=== PATIENT | male | born 1945 | race Caucasian/White ===

== ENCOUNTER 2016-10-28 12:16 | Observation (INO) | payer MEDICARE, OTHER ==
[~2016-10-28] VITALS: Ht 172.7 cm; Wt 82.7 kg
[2016-10-28] MEDS ORDERED: ONDANSETRON 4 MG INJ IV STA (12:22)
[2016-10-28] MEDS ORDERED: SOD CHLORIDE 0.9% 1,000 ML IV STA (12:22)
[2016-10-28 12:36] LABS: ADD SCAN DIFF NO
[2016-10-28 12:39] LABS: BASOPHILS % 0.1 % (0.0-2.0); EOSINOPHILS # 0.1 10^3/ul (0.0-0.5); EOSINOPHILS % 1.6 % (0.0-7.0); HEMOGLOBIN 13.7 g/dl (14.0-18.0); LYMPHOCYTES # 3.8 10^3/ul (0.8-2.9); LYMPHOCYTES % 45.2 % (15.0-51.0); MEAN CORPUSCULAR HEMOGLOBIN 28.6 pg (29.0-33.0); MEAN CORPUSCULAR HGB CONC 35.1 g/dl (32.0-37.0); MEAN CORPUSCULAR VOLUME 81.4 fl (82.0-101.0); MEAN PLATELET VOLUME 10.6 fl (7.4-10.4); MONOCYTE # 0.6 10^3/ul (0.3-0.9); MONOCYTES % 7.5 % (0.0-11.0); NEUTROPHIL # 3.8 10^3/ul (1.6-7.5); NEUTROPHILS % 45.1 % (39.0-77.0); PLATELET COUNT 216 10^3/UL (140-415); RED BLOOD COUNT 4.79 10^6/ul (4.70-6.10); RED CELL DISTRIBUTION WIDTH 12.6 % (11.5-14.5); WHITE BLOOD COUNT 8.3 10^3/ul (4.8-10.8)
[2016-10-28 12:41] VITALS: TEMP 97.8
[2016-10-28 12:50] LABS: INR 0.97; PROTIME 12.9 Sec (12.2-14.2)
[2016-10-28 12:52] LABS: ALANINE AMINOTRANSFERASE 35 IU/L (13-69); ALBUMIN/GLOBULIN RATIO 1.42; ALKALINE PHOSPHATASE 54 IU/L (42-121); AMYLASE 57 U/L (11-123); ANION GAP 13 (8-16); ASPARTATE AMINO TRANSFERASE 20 IU/L (15-46); BILIRUBIN,INDIRECT 0.3 mg/dl (0-1.1); BILIRUBIN,TOTAL 0.3 mg/dl (0.2-1.3); BLOOD UREA NITROGEN 10 mg/dl (7-20); CALCIUM 9.1 mg/dl (8.4-10.2); CARBON DIOXIDE 24 mmol/L (21-31); CHLORIDE 100 mmol/L (97-110); CREATINE KINASE 50 IU/L (23-200); CREATININE 0.78 mg/dl (0.61-1.24); GLUCOSE 155 mg/dl (70-220); POTASSIUM 3.6 mmol/L (3.5-5.1); SODIUM 133 mmol/L (135-144); TOTAL PROTEIN 6.8 g/dl (6.1-8.1)
[2016-10-28 12:57] LABS: PARTIAL THROMBOPLASTIN TIME 25.9 Sec (25.0-35.0)
--- NOTE | 2016-10-28 12:59 | RADRPT ---
PROCEDURE: XR Chest. CLINICAL INDICATION: Shortness of breath. Altered mental status. TECHNIQUE: Single frontal view. COMPARISON: None. FINDINGS: The lungs are clear. The heart size is normal. There is no pleural effusion. There is no pneumothorax. IMPRESSION: 1. Normal chest radiograph. RPTAT: QQ .Manuelito Allred MD, MD Date Time Electronically viewed and signed by .Manuelito Allred MD, MD on 10/28/2016 12:59 .R/
--- NOTE | 2016-10-28 13:02 | RADRPT ---
PROCEDURE: CT brain without contrast CLINICAL INDICATION: Altered mental status TECHNIQUE: CT of the brain without contrast performed on a multidetector CT scanner, with multiplan ar reformats. One or more of the following dose reduction techniques were used: Automated exposure control, adjustment in mA and / or kV according to patient size, use of iterative reconstructive shila hnique. CTDIvol = 43 mGy; DLP = 720 mGy-cm. COMPARISON: None available FINDINGS: No acute intracranial hemorrhage is identified. No extra-axial fluid collection is seen. There is no mass effect. No midline shift is identified. Ventricles and sulci are mildly enlarged compatible with volume loss. There are minimal areas of hypodensity seen in the periventricular - deep white matter which are non specific but suggestive of chronic small vessel ischemic changes. Wylie-white differentiation is pre served. Atherosclerotic calcifications of the proximal intracranial arteries are noted. Osseous structures are unremarkable. Mastoid air cells and imaged paranasal sinuses grossly clear. IMPRESSION: 1. No evidence of acute intracranial pathology. 2. Mild volume loss, with minimal chronic small vessel ischemic changes. RPTAT: VV .Aaron Gunter MD, MD Date Time Electronically viewed and signed by .Aaron Gunter MD, on 10/28/2016 13:01 .O/
[2016-10-28 13:07] LABS: CK-MB 1.15 ng/ml (0.0-2.4); TROPONIN-I < 0.012 ng/ml (0.00-0.12)
[2016-10-28 13:08] LABS: T3 UPTAKE 34.5 % (23.5-40.5)
[2016-10-28] MEDS ORDERED: CLON0.5T4 PO (13:20)
[2016-10-28] MEDS ORDERED: LOSA50TA6 PO (13:20)
[2016-10-28] MEDS ORDERED: SERT25TA PO (13:20)
[2016-10-28] MEDS ORDERED: ASPI81TA3 PO (13:20)
[2016-10-28] MEDS ORDERED: ATOR10TA65 PO (13:20)
--- NOTE | 2016-10-28 13:28 | ERA ---
ER Documentation Chief Complaint Date/Time DATE: 10/28/16 TIME: 13:23 Chief Complaint syncope x today HPI This is a very pleasant 70-year-old male presents to the emergency department brought in by EMS after he felt a sudden onset of dizziness and lightheadedness while shopping at [employer]. The patient indicated he had walked to the parking lot and lie down in his vehicle as he felt as though he was in a pass out. He had developed a chest pressure at the onset of the dizziness that lasted for roughly 10 minutes and then spontaneously resolved. He had associated symptoms of diaphoresis, nausea in addition to the dizziness. He stated that the chest pressure was 4 out of 10 in intensity and did not radiate to his neck arm back or jaw. He has never had any similar symptoms in the past. He has no shortness of breath at rest or exertion. He denies any calf tenderness. He has had no recent travel or prolonged immobilization. EMS stated they performed orthostatics which were positive and he had established IV access. The patient denies a headache or changes in vision. ROS All systems reviewed and are negative except as per history of present illness. Medications Home Meds Reported Medications Clonazepam* (Clonazepam*) 0.5 Mg Tablet, 0.25 MG PO DAILY Y for ANXIETY, TAB 10/28/16 Sertraline Hcl* (Zoloft*) 25 Mg Tablet, 25 MG PO DAILY, #30 TAB 10/28/16 Aspirin* (Aspirin* Chew) 81 Mg Tab.chew, 81 MG PO DAILY, TAB.CHEW 10/28/16 Atorvastatin Calcium (Atorvastatin Calcium) 10 Mg Tablet, 10 MG PO QHS, #30 TAB 10/28/16 Losartan Potassium* (Losartan Potassium*) 50 Mg Tablet, 50 MG PO BID, TAB 10/28/16 Allergies Allergies: Coded Allergies: ibuprofen (Verified Allergy, Mild, 10/28/16) PMhx/Soc Medical and Surgical Hx: pt denies Surgical Hx History of Surgery: No Anesthesia Reaction: No Hx Neurological Disorder: No Hx Respiratory Disorders: No Hx Cardiac Disorders: Yes (htn) Hx Psychiatric Problems: No Hx Miscellaneous Medical Probl: No Hx Alcohol Use: No Hx Substance Use: No Hx Tobacco Use: No Smoking Status: Never smoker Physical Exam Vitals Vital Signs Date Time Temp Pulse Resp B/P Pulse Ox O2 Delivery O2 Flow Rate FiO2 10/28/16 13:22 69 22 141/76 99 Room Air 10/28/16 12:41 97.8 82 18 129/83 98 Room Air 157/77 149/75 10/28/16 12:20 97.8 85 18 129/83 98 Physical Exam Constitutional:Well-developed. Well-nourished. HEENT:Normocephalic. Atraumatic.Pupils were equal round reactive to light. Dry mucous membranes.No tonsillar exudates. Neck: No nuchal rigidity. No lymphadenopathy. No posterior cervical spine tenderness or step-offs. Respiratory: Not using accessory muscles of respiration.Lungs were clear to auscultation bilaterally. No rhonchi. No rales. No wheezing. Cardiovascular: Regular rate regular rhythm.No murmurs. No rubs were appreciated.S1, S2 normal. Distal pulses are palpable 2+ bilaterally. GI: Abdomen was soft. Nontender. Non Distended. No pulsatile abdominal masses or bruits. No rebound. No guarding. Bowel sounds were present and normal. Muscle skeletal: Full range of motion of both the upper and lower extremities bilaterally.Normal muscle tone.No assymetrical calf tenderness or swelling. Skin: No petechia, no purpura. No lesions on the palms or the soles of the feet. No maculopapular rash. NEURO: Patient was alert, awake, orientated x3.No facial droop. Gait not observed as patient felt too dizzy to ambulate.Speech had regular rate and rhythm. No focal neurological deficits. Result Diagram: 10/28/16 1230 10/28/16 1230 Results 24 hrs Laboratory Tests Test 10/28/16 12:30 White Blood Count 8.310^3/ul Red Blood Count 4.7910^6/ul Hemoglobin 13.7g/dl Hematocrit 39.0% Mean Corpuscular Volume 81.4fl Mean Corpuscular Hemoglobin 28.6pg Mean Corpuscular Hemoglobin Concent 35.1g/dl Red Cell Distribution Width 12.6% Platelet Count 19295^3/UL Mean Platelet Volume 10.6fl Neutrophils % 45.1% Lymphocytes % 45.2% Monocytes % 7.5% Eosinophils % 1.6% Basophils % 0.1% Nucleated Red Blood Cells % 0.0/100WBC Neutrophils # 3.810^3/ul Lymphocytes # 3.810^3/ul Monocytes # 0.610^3/ul Eosinophils # 0.110^3/ul Basophils # 0.010^3/ul Nucleated Red Blood Cells # 0.010^3/ul Prothrombin Time 12.9Sec Prothrombin Time Ratio 1.0 INR International Normalized Ratio 0.97 Activated Partial Thromboplast Time 25.9Sec D-Dimer 321.90ng/ml D-Dimer Comment Sodium Level 133mmol/L Potassium Level 3.6mmol/L Chloride Level 100mmol/L Carbon Dioxide Level 24mmol/L Anion Gap 13 Blood Urea Nitrogen 10mg/dl Creatinine 0.78mg/dl Glucose Level 155mg/dl Calcium Level 9.1mg/dl Total Bilirubin 0.3mg/dl Direct Bilirubin 0.00mg/dl Indirect Bilirubin 0.3mg/dl Aspartate Amino Transf (AST/SGOT) 20IU/L Alanine Aminotransferase (ALT/SGPT) 35IU/L Alkaline Phosphatase 54IU/L Creatine Kinase 50IU/L Creatine Kinase Index 2.3 Creatinine Kinase MB (Mass) 1.15ng/ml Troponin I < 0.012ng/ml Total Protein 6.8g/dl Albumin 4.0g/dl Globulin 2.80g/dl Albumin/Globulin Ratio 1.42 Amylase Level 57U/L Lipase 49U/L Free Thyroxine Index 2.93ug/ml Thyroxine (T4) 8.5ug/dl Triiodothyronine (T3) Uptake 34.5% Current Medications Medications (Trade) Dose Ordered Sig/Irfah Route PRN Reason Start Time Stop Time Status Last Admin Dose Admin Sodium Chloride (NS) 1,000 ml @ 1,000 mls/hr Q1H STAT IV 10/28/16 12:22 10/28/16 13:21 DC 10/28/16 12:33 Ondansetron HCl (Zofran Inj) 4 mg ONCE STAT IV 10/28/16 12:22 10/28/16 12:26 DC 10/28/16 12:33 Ondansetron HCl (Zofran Inj) 4 mg ER BRIDGE PRN IV NAUSEA AND/OR VOMITING 10/28/16 14:30 10/29/16 14:29 Acetaminophen (Tylenol Tab) 650 mg ER BRIDGE PRN PO MILD PAIN/FEVER 10/28/16 14:30 10/29/16 14:29 Aspirin (Aspirin) 325 mg ONCE ONCE PO 10/28/16 14:30 10/28/16 14:31 DC Procedures/MDM The patient presented to the emergency department with a physical exam findings and history suggestive of a near syncope episode. The differential diagnosis of syncope is vast but my workup considered common benign disorders to life- threatening processes. Therefore my differential diagnosis included but was not limited to reflex-mediated syncope such as vasovagal or carotid sinus syncope from coughing, sneezing, micturition, or GI stimulation (eg, defecation). Other etiologies in my workup included orthostatic hypotension which could cause syncope from an abrupt drop in venous return to heart from volume depletion. An EKG and cardiac enzymes were obtained to rule out cardiac arrhythmias or ischemia. Cardiopulmonary disease such as valvular disease, hypertrophic cardiomyopathy, pericardial tamponade, or pulmonary embolism were considered as a factor causing the patients syncope episode. The patient had no difference in blood pressure in both arms that could suggest aortic dissection or subclavian steal syndrome. Rectal exam was negative for fecal occult blood that could suggest GI bleeding. Ancillary laboratory work was obtained to evaluate for metabolic or electrolyte abnormalities. The patient had no witnessed brief tonic movements that could suggest postictal confusion. The patient was placed on a homebound teacher, continuous pulse oximetry and IV access established by nursing staff. Orthostatic vital signs have been performed and were positive. The patient received a liter bolus of normal saline the patient was also given Zofran for his nausea. 12 Lead EKG tracing ordered and reviewed by myself showed: Normal sinus rhythm of 63 bpm and no arrhythmia. KS interval normal. QRS duration normal. There was an RSR prime pattern in lead V1 and V2 consistent with an incomplete right bundle branch block and left axis deviation No ST segment elevation No ST segment depression. No changes consistent with acute ischemia. The patient had been given 325 mg of aspirin for the patient's chest discomfort. Nitroglycerin was not given as the patient at this moment in time was not experiencing any active chest pain. He will be admitted for serial 12- lead EKG tracings and cardiac set of enzymes for further evaluation into his chest pain. I also obtained a chest radiograph which showed no infiltrates no pneumothorax or pleural effusions, one view reviewed by both myself and the radiologist Given that the patient had a near syncope episode with a sudden onset of dizziness, that likely could been a result orthostatic hypotension, I still obtained a CT scan reviewed by both myself and the radiologist of the patient's head and indicated the followin. No evidence of acute intracranial pathology. 2. Mild volume loss, with minimal chronic small vessel ischemic changes. Patient will be admitted to the panel physician in serious condition to the telemetry service under the care of Dr. Ayala for observation. At 1444 the patient's sonEric was at the bedside. He provided further information that the patient did not mention which states that one week ago the patient was placed on Zoloft as he has been experiencing anxiety and depression. The patient has not experienced any suicidal homicidal thoughts ideations but has lived alone for several years and his son indicates that he felt his symptoms could have been further exacerbated from a psychosomatic perspective. The patient takes 81 mg of aspirin on a daily basis and when the nursing staff went to get the patient his aspirin he indicated he no longer was experiencing chest pain and did not remember indicating to the EMS or myself he was experiencing chest pain however he did state this when he first arrived into the hospital. The patient's son can be reached [phone] for any further information. Departure Diagnosis: Primary Impression: Near syncope Additional Impression: Chest pain Qualified Code: R07.9 - Chest pain, unspecified type Condition: Serious STUART SANTIAGO October 28, 2016 13:28
[2016-10-28 13:44] LABS: D-DIMER 321.9 ng/ml (<460)
[2016-10-28] MEDS ORDERED: ASPIRIN 325 MG TAB PO ONE (14:30)
[2016-10-28] MEDS ORDERED: ACETAMINOPHEN 325 MG TAB PO PRN (14:30)
[2016-10-28] MEDS ORDERED: ONDANSETRON 4 MG INJ IV PRN (14:30)
[2016-10-28] MEDS: ASPIRIN 81 MG TAB PO SCH (16:00)
[2016-10-28] MEDS: SERTRALINE 50 MG TAB PO SCH (16:12)
[2016-10-28 18:05] LABS: ADD UMIC NO; URINE BILIRUBIN (Dip) NEGATIVE (NEGATIVE); URINE BLOOD (Dip) NEGATIVE (NEGATIVE); URINE COLOR LT. YELLOW (YELLOW); URINE GLUCOSE (Dip) NEGATIVE (NEGATIVE); URINE KETONES (Dip) NEGATIVE (NEGATIVE); URINE LEUKOCYTE ESTERASE (Dip) NEGATIVE (NEGATIVE); URINE NITRITE (Dip) NEGATIVE (NEGATIVE); URINE TOTAL PROTEIN (Dip) NEGATIVE (NEGATIVE); URINE UROBILINOGEN (Dip) 0.2 E.U./dL (0.1-1.0)
--- NOTE | 2016-10-28 19:06 | CONS ---
DATE OF ADMISSION: 10/28/2016 DATE OF CONSULTATION: 10/28/2016 TYPE OF CONSULTATION: Cardiology. REFERRING PHYSICIAN: Dr. Lam. REASON FOR CONSULTATION: Presyncope. CHIEF COMPLAINT: Weakness, lightheadedness. HISTORY OF PRESENT ILLNESS: Thank you for this referral. The patient is a poor historian. History obtained from discussion with the staff and physicians and the chart was reviewed. This is a pleas ant 70-year-old [place] gentleman with history of hypertension, anxiety, history of presynco pe in the past who came to emergency room with above complaint. The patient said he was feeling fin e today. He went to [facility] and he was sitting and while driving he felt lightheaded and weak. He l aid down, he felt better, but when he was sitting, he was feeling more lightheaded and weak. Parame dics were called. According to the patient and the ER notes, patient was orthostatic by tractor engine mechanic rona ospina. The patient said his blood pressure of 144 supine and 99 sitting. He is being given IV flui d and transferred to the ER and he is to be admitted. The patient denies any chest pain or pressure to me. Denies any palpitation to me. Although in the ER report stated that the patient has had so me chest discomfort. He said he has absolutely no chest pain. The patient is normally able to exer cise with no chest pain or pressure. He said that he has had a coronary angiography done 4 years ag o at [facility] by Dr. Lomeli which was also normal. Currently, he is feeling better but still has sl ight weakness. PAST MEDICAL HISTORY: History of hypertension, history of anxiety, history of dyslipidemia. MEDICATIONS AT HOME: Include: 1. Losartan 50 mg p.o. b.i.d. 2. Atenolol 50 mg daily. 3. Atorvastatin. 4. Aspirin. 5. Zoloft which was just started a few days ago. 6. Clonazepam p.r.n. SOCIAL HISTORY: Does not smoke or drink. FAMILY HISTORY: No known history of coronary artery disease. ALLERGIES: IBUPROFEN. SURGICAL HISTORY: As above mentioned. REVIEW OF SYSTEMS: As above-mentioned. PHYSICAL EXAMINATION: VITAL SIGNS: Temperature 97.8, heart rate of 69, blood pressure recorded as 129/83 supine and stand ing was 149/75. Respiratory rate of 22, saturating 99%. HEENT: Normocephalic, atraumatic. No acute distress. Pupils are equal and round. CARDIOVASCULAR: Regular rate and rhythm, systolic murmur. PULMONARY: With no wheezes, no rhonchi. GASTROINTESTINAL: Soft, nontender. EXTREMITIES: No significant lower extremity edema. NEUROLOGIC: Awake, alert x3. PSYCHIATRIC: Calm, pleasant. SKIN: With no active bleeding site. LABORATORY: Sodium 132, potassium 3.6, BUN of 10, creatinine 0.78, glucose 155, troponin less than 0.012, CK of 50. Free T4 index of 2.93. Albumin is 4. Brain CT was done which showed no evidence of acute intracranial pathology. Chest x-ray also showed normal chest x-ray per radiology report. EKG was personally reviewed, showed normal sinus rhythm, nonspecific T-wave abnormalities. There wa s no conduction delay. ASSESSMENT AND PLAN: 1. Presyncope and syncope, etiology probably related to orthostatic per patient report, rule out an y kind of arrhythmia. 2. Hypertension, currently under control with possible orthostatic. 3. Possible orthostatic hypotension. 4. Dyslipidemia. 5. Anxiety. RECOMMENDATIONS: The patient will be monitored on telemetry overnight. Echocardiogram will be [facility]. Will check the cortisol level to rule out any evidence of renal insufficiency. Intravenous fl uid has been given. Orthostatics will be checked overnight as well. Will continue to follow along with you. Thank you for this referral. Dictated By: VIKTOR BONNER/JE Conf#: [id number] DID#: [id number] CC: CLAIRE ARMENTA PUBLIC POLICY PROFESSOR;*End*
--- NOTE | 2016-10-28 19:59 | HP ---
DATE OF ADMISSION: 10/28/2016 HISTORY OF PRESENT ILLNESS: This is a 70-year-old gentleman with a history of hypertension, hyperli pidemia, anxiety disorder, previously followed by Dr. Scott Ashton at [facility], present s with a 3-month history of labile blood pressure. Today, states he felt dizzy, lightheaded while s hopping, had to lie down in his vehicle. He denied any chest pain. No loss of consciousness. He h ad central chest pressure, but no radiation. No nausea, no vomiting. No hemoptysis or hematemesis. He states he has had similar episodes over the past few months and has had cardiac catheterization performed [address] Ashton that was unremarkable. Currently, he sees no program evaluator. PAST MEDICAL HISTORY: Hypertension, hyperlipidemia, anxiety disorder. MEDICATIONS: Per chart. ALLERGIES: IBUPROFEN. SOCIAL HISTORY: Nonsmoker. No alcohol, no history of drug use. FAMILY HISTORY: Noncontributory. SYSTEMS REVIEW: A 12-point review of systems was negative other than that mentioned above. PHYSICAL EXAMINATION: GENERAL: Well-nourished, well-developed gentleman, comfortable at rest, no acute distress. VITAL SIGNS: Currently afebrile. Temperature 98, pulse 70, blood pressure 129/80, O2 saturation 96 % on room air. NECK: Supple. No JVD or lymphadenopathy. CARDIAC: S1, S2. No added sounds or murmurs. CHEST: Diminished air entry bilaterally. ABDOMEN: Soft, nontender. No guarding or rebound. EXTREMITIES: No cyanosis, clubbing, edema. NEUROLOGIC: Grossly intact. No focal deficits. DIAGNOSTIC DATA: EKG showed left axis deviation. Other than that, no acute ischemic changes. LABORATORIES STUDIES: CBC within normal limits. Chemistry unremarkable with normal thyroid functio n and normal initial troponin. INR was 0.97. IMAGING: Chest x-ray was reviewed, showed normal chest x-ray. CT of the brain was performed, which showed no acute intracranial abnormalities. IMPRESSION AND PLAN: Presyncopal episode, unlikely to be cardiac in origin, may be secondary to lab ile blood pressures. The patient will require: 1. Review of antihypertensive medications. 2. Cardiology evaluation with echocardiogram. 3. Consider outpatient stress test. 4. Deep vein thrombosis and gastrointestinal prophylaxis. 5. Continue current anxiolytics. Dictated By: LISSETTE FERRELL MD SV/JE Conf#: [id number] DID#: [id number]
[2016-10-28 20:42] VITALS: PULSE 61
[2016-10-28] MEDS: LOSARTAN 50 MG TAB PO SCH (21:00)
[2016-10-28] MEDS: ATORVASTATIN 10 MG TAB PO SCH (21:58)
[2016-10-28] MEDS: hydrALAzine 20 MG INJ IV PRN (21:58)
[2016-10-28] MEDS: clonAZEPAM 0.5 MG TAB PO PRN (21:59)
[2016-10-28 23:00] VITALS: BP 175/84; PULSE 58; RESP 20; Ht 172.7 cm; Wt 82.7 kg
[2016-10-28 23:48] VITALS: BP 147/68; RESP 20
[2016-10-29] VITALS (11 sets, daily range): BP systolic 135–165; BP diastolic 65–84; PULSE 59–77; RESP 20
[2016-10-29] MEDS: ZOLPIDEM 5 MG TAB PO PRN ×2 (03:10→22:34)
[2016-10-29 08:39] LABS: ADD SCAN DIFF NO
[2016-10-29 08:53] LABS: BASOPHILS % 0.3 % (0.0-2.0); EOSINOPHILS # 0.1 10^3/ul (0.0-0.5); EOSINOPHILS % 1.1 % (0.0-7.0); HEMATOCRIT 40.2 % (42.0-52.0); HEMOGLOBIN 13.8 g/dl (14.0-18.0); LYMPHOCYTES # 2.3 10^3/ul (0.8-2.9); LYMPHOCYTES % 30.8 % (15.0-51.0); MEAN CORPUSCULAR HEMOGLOBIN 28.2 pg (29.0-33.0); MEAN CORPUSCULAR HGB CONC 34.3 g/dl (32.0-37.0); MEAN CORPUSCULAR VOLUME 82.2 fl (82.0-101.0); MEAN PLATELET VOLUME 11.1 fl (7.4-10.4); MONOCYTE # 0.5 10^3/ul (0.3-0.9); MONOCYTES % 7.2 % (0.0-11.0); NEUTROPHIL # 4.6 10^3/ul (1.6-7.5); NEUTROPHILS % 60.3 % (39.0-77.0); PLATELET COUNT 208 10^3/UL (140-415); RED BLOOD COUNT 4.89 10^6/ul (4.70-6.10); RED CELL DISTRIBUTION WIDTH 12.9 % (11.5-14.5); WHITE BLOOD COUNT 7.5 10^3/ul (4.8-10.8)
[2016-10-29] MEDS: LOSARTAN 50 MG TAB PO SCH ×2 (09:00→09:08)
[2016-10-29] MEDS: ASPIRIN 81 MG TAB PO SCH (09:08)
[2016-10-29] MEDS: SERTRALINE 50 MG TAB PO SCH (09:08)
[2016-10-29 09:39] LABS: CALCIUM 9.3 mg/dl (8.4-10.2); CREATININE 0.79 mg/dl (0.61-1.24); PHOSPHORUS 3.8 mg/dl (2.5-4.9); POTASSIUM 3.9 mmol/L (3.5-5.1)
[2016-10-29 11:24] LABS: CREATINE KINASE 36 IU/L (23-200)
[2016-10-29 11:26] LABS: ALBUMIN 3.8 g/dl (3.3-4.9); BILIRUBIN,INDIRECT 0.3 mg/dl (0-1.1); BILIRUBIN,TOTAL 0.3 mg/dl (0.2-1.3); CHOL/HDL RATIO 4.3 RATIO; TOTAL PROTEIN 6.6 g/dl (6.1-8.1)
--- NOTE | 2016-10-29 11:37 | PN ---
DATE: 10/29/2016 CARDIOLOGY FOLLOWUP SUBJECTIVE: Patient with no chest pain or pressure. No palpitation, no dizziness. Currently feeli ng better. Rhythm strip remains in sinus rhythm, sinus bradycardia, no evidence of significant arrh ythmia noted. Wants to go home. MEDICATIONS: Reviewed. PHYSICAL EXAMINATION: VITAL SIGNS: Temperature 97.9, heart rate of 74, blood pressure of 145/79, respiratory rate of 20. HEENT: Normocephalic, atraumatic, no acute distress. Pupils are equal. CARDIOVASCULAR: Regular rate and rhythm, systolic murmur. PULMONARY: With no wheezes or rhonchi. GASTROINTESTINAL: Soft, nontender. EXTREMITIES: No edema. NEUROLOGIC: Awake, alert. PSYCHIATRIC: Appeared to be calm. LABORATORY: WBC of ____.5, hemoglobin 13.8, platelets 208. Sodium 132, potassium 3.9, BUN of 11, c reatinine 0.79, glucose of 115. ASSESSMENT AND PLAN: 1. Presyncope. 2. Orthostatic hypotension, currently improved. 3. History of hypertension. 4. History of anxiety. 5. History of dyslipidemia. RECOMMENDATIONS: We will continue with the current cardiac care. Awaiting echo to be done. Checo gipson planning is scheduled, patient was given my information to call to schedule for outpatient [facility] appointment. Dictated By: VIKTOR BONNER/JE Conf#: [id number] DID#: [id number]
[2016-10-29 11:40] LABS: CK-MB 0.82 ng/ml (0.0-2.4); TROPONIN-I < 0.012 ng/ml (0.00-0.12)
[2016-10-29 11:53] LABS: THYROID STIMULATING HORMONE 2.04 MIU/L (0.465-4.680)
[2016-10-29] MEDS: VALSARTAN 80 MG TAB PO SCH (12:25)
[2016-10-29] MEDS: clonAZEPAM 0.5 MG TAB PO PRN (12:26)
--- NOTE | 2016-10-29 14:03 | PDOCDIS ---
Discharge Instructions DIAGNOSIS Discharge Diagnosis: Orthistatic hypotension CONDITION Patient Condition: Stable HOME CARE INSTRUCTIONS: Diet Instructions: Low Fat /Cholesterol ACTIVITY: Activity Restrictions: Slowly Increase Activity Rest between Activity FOLLOW UP/APPOINTMENTS Appointments 1. Always take your Zoloft and Klonopin at night time 2. Call Dr Wick's office for cardiology followup Name, Degree: Kian Wick MD Specialty: Cardiology Comments: Office Address: [address] [place] [address] [address] [place] [address] Office Office 3. Also Followup with your primary doctor within the next 1-2 weeks. If you don't have one please let someone know, we can give you resources that may help you pick one. You may call Dr Kailash Chase's office. he's accepting new patients Name, Degree: Kailash Chase MD Specialty: Internal Medicine Comments: Office Address: [address] [place] [address] [address] [place] [address] Office Office You may also call your insurance company to assign one to you. Review your medication list with your nurse before leaving and if you need new prescriptions please let your nurse know. I may have made changes to your home medications or given you new prescriptions , please let your primary doctor know as well. Stay compliant with your medications and report any side effects to your PCP or pharmacist. Return to the ER if you have any concerns and cannot reach your doctors or call your insurance company, they usually have a nurse that can help you. HOLLIE ROA October 29, 2016 14:03
[2016-10-29] MEDS ORDERED: SERT25TA PO (14:07)
--- NOTE | 2016-10-29 14:18 | PN ---
Date/Time of Note Date/Time of Note DATE: 10/29/16 TIME: 14:08 Assessment/Plan VTE Prophylaxis VTE Prophylaxis Intervention: SCD's Lines/Catheters IV Catheter Type (from Nrs): Saline Lock Urinary Cath still in place: No Assessment/Plan Assessment/Plan 1. Near syncope likely 2/2 Orthostatic hypotension which could be from SSRI 2. Chest discomfort: resolved 3. HTN: Suboptimal control 4. Anxiety: stable 5. Dyslipidemia PLan: Patient seems stable for discharge. Will await cardiology clearance and echo review. Subjective 24 Hr Interval Summary Free Text/Dictation Patient seen and examined. wants to go home no more dizziness Exam/Review of Systems Vital Signs Vitals Vital Signs Date Time Temp Pulse Resp B/P Pulse Ox O2 Delivery O2 Flow Rate FiO2 10/29/16 12:12 67 10/29/16 11:22 98.1 20 160/84 94 10/28/16 23:00 Room Air Intake and Output 10/28/16 10/28/16 10/29/16 14:59 22:59 06:59 Intake Total 500 ml Balance 500 ml Exam GENERAL: Well-nourished, well-developed gentleman, comfortable at rest, no acute distress. NECK: Supple. No JVD or lymphadenopathy. CARDIAC: S1, S2. No added sounds or murmurs. CHEST: Diminished air entry bilaterally. ABDOMEN: Soft, nontender. No guarding or rebound. EXTREMITIES: No cyanosis, clubbing, edema. NEUROLOGIC: Grossly intact. No focal deficits. Results Result Diagram: 10/29/16 0740 10/29/16 0740 Results 24 hrs Laboratory Tests Test 10/28/16 17:00 10/29/16 07:40 Urine Color LT. YELLOW Urine Clarity CLEAR Urine pH 7.0 Urine Specific [place] <=1.005 L Urine Ketones NEGATIVE Urine Nitrite NEGATIVE Urine Bilirubin NEGATIVE Urine Urobilinogen 0.2 E.U./dL Urine Leukocyte Esterase NEGATIVE Urine Hemoglobin NEGATIVE Urine Glucose NEGATIVE Urine Total Protein NEGATIVE White Blood Count 7.5 Red Blood Count 4.89 Hemoglobin 13.8 L Hematocrit 40.2 L Mean Corpuscular Volume 82.2 Mean Corpuscular Hemoglobin 28.2 L Mean Corpuscular Hemoglobin Concent 34.3 Red Cell Distribution Width 12.9 Platelet Count 208 Mean Platelet Volume 11.1 H Neutrophils % 60.3 Lymphocytes % 30.8 Monocytes % 7.2 Eosinophils % 1.1 Basophils % 0.3 Nucleated Red Blood Cells % 0.0 Neutrophils # 4.6 Lymphocytes # 2.3 Monocytes # 0.5 Eosinophils # 0.1 Basophils # 0.0 Nucleated Red Blood Cells # 0.0 Sodium Level 136 Potassium Level 3.9 Chloride Level 104 Carbon Dioxide Level 27 Anion Gap 9 Blood Urea Nitrogen 11 Creatinine 0.79 Glucose Level 115 # Calcium Level 9.3 Phosphorus Level 3.8 Magnesium Level 2.0 Total Bilirubin 0.3 Direct Bilirubin 0.00 Indirect Bilirubin 0.3 Aspartate Amino Transf (AST/SGOT) 30 Alanine Aminotransferase (ALT/SGPT) 43 Alkaline Phosphatase 49 Creatine Kinase 36 Creatine Kinase Index 2.3 Creatinine Kinase MB (Mass) 0.82 Troponin I < 0.012 B-Type Natriuretic Peptide 256 H Total Protein 6.6 Albumin 3.8 Triglycerides Level 127 Cholesterol Level 131 LDL Cholesterol, Calculated 76 HDL Cholesterol 30 L Cholesterol/HDL Ratio 4.3 Thyroid Stimulating Hormone (TSH) 2.040 Free Thyroxine 1.17 Random Cortisol 17.1 Medications Medications Current Medications Aspirin (Aspirin) 81 mg DAILY PO Last administered on 10/29/16 09:08; Admin Dose 81 MG; Start 10/28/16 at 16:00 Atorvastatin Calcium (Lipitor) 10 mg QHS PO Last administered on 10/28/16 21:58 ; Admin Dose 10 MG; Start 10/28/16 at 21:00 Clonazepam (Klonopin) 0.25 mg DAILY PRN PO ANXIETY Last administered on 12:26; Admin Dose 0.25 MG; Start 10/28/16 at 16:00 Losartan Potassium (Cozaar) 50 mg BID PO ; Start 10/28/16 at 21:00 Sertraline HCl (Zoloft) 25 mg DAILY PO Last administered on 10/29/16 09:08; Admin Dose 25 MG; Start 10/28/16 at 16:00 Hydralazine HCl (Apresoline) 10 mg Q6H PRN IV ELEVATED BLOOD PRESSURE Last administered on 10/28/16 21:58; Admin Dose 10 MG; Start 10/28/16 at 21:30 Zolpidem Tartrate (Ambien) 5 mg HS PRN PO INSOMNIA Last administered on 03:10; Admin Dose 5 MG; Start 10/29/16 at 03:00 Valsartan (Diovan) 80 mg DAILY PO Last administered on 10/29/16t 12:25; Admin Dose 80 MG; Start 10/29/16 at 12:00 HOLLIE ROA October 29, 2016 14:17
--- NOTE | 2016-10-29 14:34 | RADRPT ---
Echocardiogram Report Patient Name: LADY JONES Gender: Male Date: 1945 Study Date: 29-Oct-2016 Strategic Debriefing Officer: Michael Bull RDCS Location: 519 Ref. Physician: VIKTOR WICK Quality: Adequate Procedures: Transthoracic echocardiogram with complete 2D, M-Mode, and doppler examination. Indications: preyncope. 2D/M Mode Doppler Measurement Value Normal Ranges Measurement Value Normal Ranges LVIDd 2D 4.5 3.5 - 5.6 cm AV Peak Guy 1.3 m/sec LVIDs 2D 2.7 2.1 - 4.1 cm AV Peak PG 6.5 mmHg LVPWd 2D 1.1 0.6 - 1.1 cm LVOT Peak Guy 1.1 m/sec IVSd 2D 1.1 0.6 - 1.1 cm LVOT Peak PG 5.1 mmHg AoR Diam 2D 3.1 2.0 - 3.7 cm MV E Peak Guy 0.8 m/sec EDV 2D 90.8 cm3 MV A Peak Guy 0.9 m/sec ESV 2D 19.5 cm3 MV E/A 0.9 LA Dimen 2D 2.8 2.3 - 4.0 cm MV Decel Time 142 msec MV Decel [place] 6 MV E/A 0.9 TR Peak Guy 2.9 m/sec TR Peak PG 34.7 mmHg RVSP 38.0 mmHg Findings Left Ventricle: Normal left ventricular systolic function. Normal left ventricular cavity size. Mild concentric left ventricular hypertrophy. Ejection fraction is visually estimated at 65 %. Tissue Doppler/Mitral Doppler indices are consistent with impaired relaxation (Stage I diastolic dysfunction). Right Ventricle: Normal right ventricular size. Normal right ventricular systolic function. Left Atrium: The left atrium is normal in size. Right Atrium: The right atrium is normal in size. Mitral Valve: Normal appearance and function of the mitral valve with trace physiologic regurgitation. Aortic Valve: Normal appearance of the aortic valve. No significant aortic stenosis or insufficiency. Tricuspid Valve: Normal appearance of the tricuspid valve. Estimated peak PA systolic pressure 37 mmHg. There is trace to mild tricuspid regurgitation. Pulmonic Valve: Pulmonic valve not well visualized. There is trace pulmonic regurgitation. Pericardium: Normal pericardium with no significant pericardial effusion. Aorta: Normal aortic root. IVC: Normal size and normal respiratory collapse consistent with normal right atrial pressure. Conclusions 1.Normal left ventricular systolic function. Normal left ventricular cavity size. Mild concentric left ventricular hypertrophy. Ejection fraction is visually estimated at 65 %. Tissue Doppler/Mitral Doppler indices are consistent with impaired relaxation (Stage I diastolic dysfunction). 2.Normal appearance and function of the mitral valve with trace physiologic regurgitation. 3.Normal appearance of the aortic valve. No significant aortic stenosis or insufficiency. 4.Normal appearance of the tricuspid valve. Estimated peak PA systolic pressure 37 mmHg. There is trace to mild tricuspid regurgitation. 5.Normal aortic root. Electronically Signed By: Viktor Wick 29-Oct-2016 14:33:14 -0700 Patient Name: LADY JONES Study Date: 29-Oct-2016 [id number]
[2016-10-29] MEDS: hydrALAzine 20 MG INJ IV PRN (19:48)
[2016-10-29] MEDS: ATORVASTATIN 10 MG TAB PO SCH (20:02)
[2016-10-29] MEDS ORDERED: LOSARTAN 50 MG TAB PO SCH (21:00)
[2016-10-30] VITALS (11 sets, daily range): BP systolic 147–171; BP diastolic 72–88; PULSE 66–93; RESP 18–20
[2016-10-30] MEDS ORDERED: ACETAMINOPHEN 325 MG TAB PO PRN (05:00)
[2016-10-30] MEDS: clonAZEPAM 0.5 MG TAB PO PRN (05:06)
[2016-10-30] MEDS: SERTRALINE 50 MG TAB PO SCH (09:00)
[2016-10-30] MEDS ORDERED: AMLODIPINE 5 MG TAB PO SCH (09:00)
[2016-10-30] MEDS: VALSARTAN 80 MG TAB PO SCH (09:20)
[2016-10-30] MEDS: ASPIRIN 81 MG TAB PO SCH (09:20)
[2016-10-30] MEDS ORDERED: LORAZEPAM 2 MG INJ IV ONE (12:30)
[2016-10-30] MEDS ORDERED: LABETALOL HCL 20MG INJ IV ONE (12:30)
[2016-10-30] MEDS ORDERED: clonAZEPAM 0.5 MG TAB PO ONE (17:00)
--- NOTE | 2016-10-30 17:04 | DS ---
Date/Time of Note Date/Time of Note DATE: 10/30/16 TIME: 17:02 Discharge Summary Admission/Discharge Info Admit Date/Time October 28, 2016 at 14:12 Discharge Date/Time 10/30/16 Final Diagnosis 1. Near syncope likely 2/2 Orthostatic hypotension which could be from SSRI 2. Chest discomfort: resolved 3. HTN: improved control 4. Chronic Anxiety: stable 5. Dyslipidemia . Patient Condition: Stable Consults Vahdat: cardiology . Procedures PROCEDURE: CT brain without contrast CLINICAL INDICATION: Altered mental status TECHNIQUE: CT of the brain without contrast performed on a multidetector CT scanner, with multiplanar reformats. One or more of the following dose reduction techniques were used: Automated exposure control, adjustment in mA and / or kV according to patient size, use of iterative reconstructive technique. CTDIvol = 43 mGy; DLP = 720 mGy-cm. COMPARISON: None available FINDINGS: No acute intracranial hemorrhage is identified. No extra-axial fluid collection is seen. There is no mass effect. No midline shift is identified. Ventricles and sulci are mildly enlarged compatible with volume loss. There are minimal areas of hypodensity seen in the periventricular - deep white matter which are nonspecific but suggestive of chronic small vessel ischemic changes. Wylie-white differentiation is preserved. Atherosclerotic calcifications of the proximal intracranial arteries are noted. Osseous structures are unremarkable. Mastoid air cells and imaged paranasal sinuses grossly clear. IMPRESSION: 1. No evidence of acute intracranial pathology. 2. Mild volume loss, with minimal chronic small vessel ischemic changes. RPTAT: VV .Aaron Gunter MD, MD Date Time Electronically viewed and signed by .Aaron Gunter MD, MD on 10/28/2016 13:01 PROCEDURE: XR Chest. CLINICAL INDICATION: Shortness of breath. Altered mental status. TECHNIQUE: Single frontal view. COMPARISON: None. FINDINGS: The lungs are clear. The heart size is normal. There is no pleural effusion. There is no pneumothorax. IMPRESSION: 1. Normal chest radiograph. RPTAT: QQ .Manuelito Allred MD, MD Date Time Electronically viewed and signed by .Manuelito Allred MD, MD on 10/28/2016 12:59 .R/ CC: STUART SANTIAGO Echocardiogram Report Patient Name: LADY JONES Gender: Male Date: 1945 Study Date: 29-Oct-2016 Animal Shelter Worker: Michael Bull RDCS Location: 519 Ref. Physician: VIKTOR WICK Quality: Adequate Procedures: Transthoracic echocardiogram with complete 2D, M-Mode, and doppler examination. Indications: preyncope. 2D/M Mode Doppler Measurement Value Normal Ranges Measurement Value Normal Ranges LVIDd 2D 4.5 3.5 - 5.6 cm AV Peak Guy 1.3 m/sec LVIDs 2D 2.7 2.1 - 4.1 cm AV Peak PG 6.5 mmHg LVPWd 2D 1.1 0.6 - 1.1 cm LVOT Peak Guy 1.1 m/sec IVSd 2D 1.1 0.6 - 1.1 cm LVOT Peak PG 5.1 mmHg AoR Diam 2D 3.1 2.0 - 3.7 cm MV E Peak Guy 0.8 m/sec EDV 2D 90.8 cm3 MV A Peak Guy 0.9 m/sec ESV 2D 19.5 cm3 MV E/A 0.9 LA Dimen 2D 2.8 2.3 - 4.0 cm MV Decel Time 142 msec MV Decel [place] 6 MV E/A 0.9 TR Peak Guy 2.9 m/sec TR Peak PG 34.7 mmHg RVSP 38.0 mmHg Findings Left Ventricle: Normal left ventricular systolic function. Normal left ventricular cavity size. Mild concentric left ventricular hypertrophy. Ejection fraction is visually estimated at 65 %. Tissue Doppler/Mitral Doppler indices are consistent with impaired relaxation (Stage I diastolic dysfunction). Right Ventricle: Normal right ventricular size. Normal right ventricular systolic function. Left Atrium: The left atrium is normal in size. Right Atrium: The right atrium is normal in size. Mitral Valve: Normal appearance and function of the mitral valve with trace physiologic regurgitation. Aortic Valve: Normal appearance of the aortic valve. No significant aortic stenosis or insufficiency. Tricuspid Valve: Normal appearance of the tricuspid valve. Estimated peak PA systolic pressure 37 mmHg. There is trace to mild tricuspid regurgitation. Pulmonic Valve: Pulmonic valve not well visualized. There is trace pulmonic regurgitation. Pericardium: Normal pericardium with no significant pericardial effusion. Aorta: Normal aortic root. IVC: Normal size and normal respiratory collapse consistent with normal right atrial pressure. Conclusions 1. Normal left ventricular systolic function. Normal left ventricular cavity size. Mild concentric left ventricular hypertrophy. Ejection fraction is visually estimated at 65 %. Tissue Doppler/Mitral Doppler indices are consistent with impaired relaxation (Stage I diastolic dysfunction). 2. Normal appearance and function of the mitral valve with trace physiologic regurgitation. 3. Normal appearance of the aortic valve. No significant aortic stenosis or insufficiency. 4. Normal appearance of the tricuspid valve. Estimated peak PA systolic pressure 37 mmHg. There is trace to mild tricuspid regurgitation. 5. Normal aortic root. Electronically Signed By: Viktor Wick 29-Oct-2016 14:33:14 -0700 Patient Name: LADY JONES Study Date: 29-Oct-2016 Echocardiogram Report Patient Name: LADY JONES Gender: Male Date: 1945 Study Date: 29-Oct-2016 Animal Shelter Worker: Michael Bull RDCS Location: 519 Ref. Physician: VIKTOR WICK Quality: Adequate Procedures: Transthoracic echocardiogram with complete 2D, M-Mode, and doppler examination. Indications: preyncope. 2D/M Mode Doppler Measurement Value Normal Ranges Measurement Value Normal Ranges LVIDd 2D 4.5 3.5 - 5.6 cm AV Peak Guy 1.3 m/sec LVIDs 2D 2.7 2.1 - 4.1 cm AV Peak PG 6.5 mmHg LVPWd 2D 1.1 0.6 - 1.1 cm LVOT Peak Guy 1.1 m/sec IVSd 2D 1.1 0.6 - 1.1 cm LVOT Peak PG 5.1 mmHg AoR Diam 2D 3.1 2.0 - 3.7 cm MV E Peak Guy 0.8 m/sec EDV 2D 90.8 cm3 MV A Peak Guy 0.9 m/sec ESV 2D 19.5 cm3 MV E/A 0.9 LA Dimen 2D 2.8 2.3 - 4.0 cm MV Decel Time 142 msec MV Decel [place] 6 MV E/A 0.9 TR Peak Guy 2.9 m/sec TR Peak PG 34.7 mmHg RVSP 38.0 mmHg Findings Left Ventricle: Normal left ventricular systolic function. Normal left ventricular cavity size. Mild concentric left ventricular hypertrophy. Ejection fraction is visually estimated at 65 %. Tissue Doppler/Mitral Doppler indices are consistent with impaired relaxation (Stage I diastolic dysfunction). Right Ventricle: Normal right ventricular size. Normal right ventricular systolic function. Left Atrium: The left atrium is normal in size. Right Atrium: The right atrium is normal in size. Mitral Valve: Normal appearance and function of the mitral valve with trace physiologic regurgitation. Aortic Valve: Normal appearance of the aortic valve. No significant aortic stenosis or insufficiency. Tricuspid Valve: Normal appearance of the tricuspid valve. Estimated peak PA systolic pressure 37 mmHg. There is trace to mild tricuspid regurgitation. Pulmonic Valve: Pulmonic valve not well visualized. There is trace pulmonic regurgitation. Pericardium: Normal pericardium with no significant pericardial effusion. Aorta: Normal aortic root. IVC: Normal size and normal respiratory collapse consistent with normal right atrial pressure. Conclusions 1. Normal left ventricular systolic function. Normal left ventricular cavity size. Mild concentric left ventricular hypertrophy. Ejection fraction is visually estimated at 65 %. Tissue Doppler/Mitral Doppler indices are consistent with impaired relaxation (Stage I diastolic dysfunction). 2. Normal appearance and function of the mitral valve with trace physiologic regurgitation. 3. Normal appearance of the aortic valve. No significant aortic stenosis or insufficiency. 4. Normal appearance of the tricuspid valve. Estimated peak PA systolic pressure 37 mmHg. There is trace to mild tricuspid regurgitation. 5. Normal aortic root. Electronically Signed By: Viktor Wick 29-Oct-2016 14:33:14 -0700 . Hospital Course Full details are available in the chart for review in summary this 70-year-old male was admitted after a near syncopal episode when he felt dizzy and lightheaded while shopping. He was admitted for an acute coronary syndrome rule out and he was reviewed by cardiology doctor for that. He underwent a 2D echo as well as a CAT scan of the brain L of which came back negative he had orthostatic vital signs done that was consistent with orthostatic hypotension. It is my opinion that this is secondary to the SSRI he was taking and have recommended that he hold his Zoloft therapy. He is recommended to follow-up with his outpatient doctor or come back to the emergency room if symptoms continue or recur. At this time has been stable in-house. His blood pressure control in-house fluctuated because we had to change some of his medications due to allergies, but his control is much improved now and he will be returning home on his previous regimen. He is encouraged to follow-up with his primary care doctor and outpatient band shover as soon as possible. He has also been given information for Dr. Wick's office and he can follow-up with him as well. His comorbidities were managed as per Medical records and patient has been assessed by myself and is stable for discharge at this time. . Home Meds Active Scripts Sertraline Hcl* (Zoloft*) 25 Mg Tablet, 25 MG PO QHS, #30 TAB Prov:HOLLIE ROA 10/29/16 Reported Medications Clonazepam* (Clonazepam*) 0.5 Mg Tablet, 0.25 MG PO DAILY Y for ANXIETY, TAB 10/28/16 Aspirin* (Aspirin* Chew) 81 Mg Tab.chew, 81 MG PO DAILY, TAB.CHEW 10/28/16 Atorvastatin Calcium (Atorvastatin Calcium) 10 Mg Tablet, 10 MG PO QHS, #30 TAB 10/28/16 Losartan Potassium* (Losartan Potassium*) 50 Mg Tablet, 50 MG PO BID, TAB 10/28/16 Follow-up Plan see above. Time spent on final evaluation and assessment, discharge planning, counselling and coordination has been >40mins. HOLLIE ROA October 30, 2016 17:04
== END 2016-10-30 18:51 | disposition home or self-care (01) ==
LOC: E/R 12:16 → TEL 14:12 → INTOOBSV 14:12
PROVIDERS: ADMIT Family Medicine; ATTEND Family Medicine
DX: R55 Syncope and collapse (principal); R07.89 Other chest pain; I12.9 Hypertensive chronic kidney disease with stage 1 through stage 4 chronic kidney disease, or unspecified chronic kidney disease; N18.9 Chronic kidney disease, unspecified; E78.5 Hyperlipidemia, unspecified
CPT/HCPCS: 70450; 71010; 80048; 80053; 80061; 80076; 81003; 82150; 82533; 82550; 82553; 83690; 83735; 83880; 84100; 84436; 84439; 84443; 84479; 84484; 85025; 85378; 85610; 85730; 93005; 93306; 96374; 96375; 99285; G0378; J0360; J2060; J2405; J7030